=== PATIENT | male | born 2000 | race Two or more races ===

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

== ENCOUNTER 2022-11-10 07:59 | Emergency (ER) | payer OTHER ==
[2022-11-10 08:12] VITALS: RESP 18; BMI 20.7
[2022-11-10 10:59] VITALS: BP 126/62; PULSE 62; TEMP 97.8
== END 2022-11-10 10:59 | disposition home or self-care (01) ==
LOC: JER 07:59
DX: R55 Syncope and collapse (principal)
CPT/HCPCS: 93005; 93010; 99283-25